=== PATIENT | male | born 1975 | race Two or more races ===

== ENCOUNTER 2020-11-23 08:06 | Day surgery (SDC) | payer MEDICAID ==
[2020-11-17 12:47] LABS: BASOPHILS # (AUTO) 0.1 X10'3 (0-0.2); BASOPHILS % (AUTO) 0.7 % (0-1); EOSINOPHILS # (AUTO) 0.2 X10'3 (0-0.9); EOSINOPHILS % (AUTO) 2.1 % (0-6); LYMPHOCYTES # (AUTO) 2.8 X10'3 (1.1-4.8); LYMPHOCYTES % (AUTO) 38.3 % (21-51); MEAN CORPUSCULAR HEMOGLOBIN 31.7 PG (27.0-31.0); MEAN CORPUSCULAR VOLUME 93.2 FL (78-98); MEAN PLATELET VOLUME 6.9 FL (7.4-10.4); MONOCYTES # (AUTO) 0.7 X10'3 (0-0.9); MONOCYTES % (AUTO) 9.3 % (2-12); NEUTROPHILS # (AUTO) 3.7 X10'3 (1.8-7.7); NEUTROPHILS % (AUTO) 49.6 % (42-75); PRE OP HEMATOCRIT 42.6 % (42.0-52.0); PRE OP HEMOGLOBIN 14.5 g/dL (14.0-17.9); PRE OP PLATELET COUNT 311 X10'3 (140-440); RED BLOOD COUNT 4.57 X10'6 (4.70-6.10)
[2020-11-17 13:02] LABS: ALBUMIN 3.8 G/DL (3.4-5.0); ALBUMIN/GLOBULIN RATIO 1.3 (1.1-1.5); ALKALINE PHOSPHATASE 69 IU/L (46-116); BLOOD UREA NITROGEN 25 MG/DL (7-18); BUN/CREATININE RATIO 20.2 (5.4-32.0); CALCIUM 8.9 MG/DL (8.5-10.1); CHLORIDE 104 MMOL/L (99-107); CREATININE 1.24 MG/DL (0.60-1.10); PRE OP ALT 25 U/L (30-65); PRE OP ANION GAP 7 (8-16); PRE OP AST 14 U/L (10-37); PRE OP BILIRUB, TOTAL 0.5 MG/DL (0.0-1.0); PRE OP GLUCOSE 98 MG/DL (70-104); PRE OP SODIUM 139 MMOL/L (135-145); TOTAL CARBON DIOXIDE 28.1 MMOL/L (24-32); TOTAL PROTEIN 6.7 G/DL (6.4-8.2); eGFR 64 ML/MIN
[2020-11-23] VITALS (11 sets, daily range): BP systolic 110–125; BP diastolic 69–90
[~2020-11-23] VITALS: Ht 182.9 cm; Wt 90.7 kg
[~2020-11-23 08:06] MED LIST: NO HOME MEDS PO; albuterol 2.5 MG/3 ML nebule NEB ONE; cefazolin/dext.iso 2gm/100ml IV ONE; famotidine 20mg tablet PO ONE; ringers solution, lacted 1,000 ML IV SCH
[2020-11-23] MEDS ORDERED: metoclopramide 10mg tablet PO ONE (08:30)
[2020-11-23] MEDS ORDERED: glycopyrrolate 0.2mg/ml inj ONE (11:00)
[2020-11-23] MEDS ORDERED: neostigmine methylsulfate 1 MG/ML 10ml vial ONE (11:00)
[2020-11-23] MEDS ORDERED: sevoflurane 250ml liquid IH ONE (11:00)
[2020-11-23] MEDS ORDERED: fentaNYL/PF 50MCG/1 ML 2ML syringe ONE (11:06)
[2020-11-23] MEDS ORDERED: midazolam 1 mg/ML 2ml injection ONE (11:08)
[2020-11-23] MEDS ORDERED: ondansetron/PF 4mg/2ml inj ONE (11:28)
[2020-11-23] MEDS ORDERED: dexamethasone sod phosphate 4mg/ml inj. ONE (11:29)
[2020-11-23] MEDS ORDERED: LIDOcaine 2% (20mg/ml) 5ml vial ONE (11:29)
[2020-11-23] MEDS ORDERED: LIDOcaine 1%/PF 5ML 10 MG/ML VIAL ONE (11:29)
[2020-11-23] MEDS ORDERED: propofol inj 20 ML IV ONE (11:29)
[2020-11-23] MEDS ORDERED: ROPIVAcaine 0.5% (5mg/ml) 30ml vial ONE (11:29)
[2020-11-23] MEDS ORDERED: morphine 4 MG/ML inj SYRINge IV PRN (12:00)
[2020-11-23] MEDS ORDERED: meperidine/PF 25mg/ml syringe IV PRN ×3 (12:00)
[2020-11-23] MEDS ORDERED: labetalol 20mg/4ml (5mg/ml) syringe IV PRN (12:00)
[2020-11-23] MEDS ORDERED: hydrALAZINE 20mg/ml inj. IV PRN (12:00)
[2020-11-23] MEDS ORDERED: ringers solution, lacted 1,000 ML IV SCH (12:00)
[2020-11-23] MEDS ORDERED: proCHLORperazine 10 MG/2 ml inj IV PRN (12:00)
[2020-11-23] MEDS ORDERED: morphine 2 MG/ML inj. syringe IV PRN (12:00)
[2020-11-23] MEDS ORDERED: ondansetron/PF 4mg/2ml inj IV PRN (12:00)
[2020-11-23] MEDS ORDERED: acetaminophen 1,000mg/100ml IV 100 ML IV PRN ×2 (12:00→13:00)
[2020-11-23] MEDS ORDERED: HYDROcodone/acetaminophen 10/325mg tab PO PRN (12:30)
[2020-11-23] MEDS ORDERED: ketorolac tromethamine 15mg/ml inj. IV ONE (13:00)
--- NOTE | 2020-11-23 14:32 | NUR ---
PT UP AND ABLE TO AMBULATE SAFELY, VOIDED, D/C INSTRUCTIONS GIVEN AND GONE OVER W/PT AND PTS WHO VERBALIZED UNDERSTANDING. PT D/CD TO HOME VIA W/C TO PRIVATE VEHICLE W/O INCIDENT. Addendum: 11/23/20 at 1500 by Honey Newsome RN Amended: Links added.
== END 2020-11-23 14:32 | disposition home or self-care (01) ==
LOC: PAS 08:06
PROVIDERS: ATTEND Orthopaedic Surgery
DX: S46.211A Strain of muscle, fascia and tendon of other parts of biceps, right arm, initial encounter (principal); M75.21 Bicipital tendinitis, right shoulder; F17.210 Nicotine dependence, cigarettes, uncomplicated; G47.33 Obstructive sleep apnea (adult) (pediatric); F12.90 Cannabis use, unspecified, uncomplicated; F32.9 Major depressive disorder, single episode, unspecified; F90.9 Attention-deficit hyperactivity disorder, unspecified type; G89.18 Other acute postprocedural pain; Z79.899 Other long term (current) drug therapy; Z20.822 Contact with and (suspected) exposure to COVID-19; Z79.01 Long term (current) use of anticoagulants; X58.XXXA Exposure to other specified factors, initial encounter; Y93.89 Activity, other specified; Y92.89 Other specified places as the place of occurrence of the external cause; Y99.8 Other external cause status
CPT/HCPCS: 24342; 36415; 64415; 76942; 80053; 82948; 85025; 93005; C1713; J0131; J1100; J1885; J2001; J2250; J2270; J2405; J2704; J2710; J3010; J7120; U0003; U0005; A4215; A4618; A6449; A7000; J2795; J3490; J8597

== ENCOUNTER 2021-07-01 15:59 | Emergency (ER) | payer MEDICAID, OTHER ==
[~2021-07-01] VITALS: Ht 182.9 cm; Wt 111.4 kg
[~2021-07-01 15:59] MED LIST changes: -albuterol 2.5 MG/3 ML nebule NEB ONE; -cefazolin/dext.iso 2gm/100ml IV ONE; -famotidine 20mg tablet PO ONE; -ringers solution, lacted 1,000 ML IV SCH
[2021-07-01] MEDS ORDERED: LIDOcaine 1% W/epiNEPHrine 1:200,000 10ml vial IJ ONE (16:30)
[2021-07-01 18:42] LABS: BASOPHILS # (AUTO) 0.1 X10'3 (0-0.2); BASOPHILS % (AUTO) 0.6 % (0-1); EOSINOPHILS # (AUTO) 0.1 X10'3 (0-0.9); EOSINOPHILS % (AUTO) 0.6 % (0-6); HEMOGLOBIN 15.2 g/dl (14.0-17.9); LYMPHOCYTES % (AUTO) 17.9 % (21-51); MEAN CORPUSCULAR HEMOGLOBIN 29.7 PG (27.0-31.0); MEAN CORPUSCULAR HGB CONC 33.7 g/dL (33.0-36.5); MEAN CORPUSCULAR VOLUME 88.2 FL (78-98); MEAN PLATELET VOLUME 7.3 FL (7.4-10.4); MONOCYTES % (AUTO) 8.6 % (2-12); NEUTROPHILS % (AUTO) 72.3 % (42-75); PLATELET COUNT 293 X10'3 (140-440); RED CELL DISTRIBUTION WIDTH 14.8 % (11.5-14.5); WHITE BLOOD COUNT 11.1 X10'3 (4.5-11.0)
[2021-07-01 18:53] LABS: ALANINE AMINOTRANSFERASE 42 U/L (12-78); ALBUMIN 3.9 G/DL (3.4-5.0); ALBUMIN/GLOBULIN RATIO 1.1 (1.1-1.5); ALKALINE PHOSPHATASE 69 IU/L (46-116); ANION GAP 10 (8-16); ASPARTATE AMINO TRANSFERASE 16 U/L (10-37); BILIRUBIN,TOTAL 0.5 MG/DL (0.1-1.0); BLOOD UREA NITROGEN 22 MG/DL (7-18); BUN/CREATININE RATIO 16.1 (5.4-32.0); CALCIUM 9.6 MG/DL (8.5-10.1); CHLORIDE 107 MMOL/L (99-107); CREATININE 1.37 MG/DL (0.60-1.10); GLUCOSE 104 MG/DL (70-104); POTASSIUM 4.2 MMOL/L (3.5-5.1); SODIUM 142 MMOL/L (135-145); TOTAL CARBON DIOXIDE 24.6 MMOL/L (24-32); TOTAL PROTEIN 7.3 G/DL (6.4-8.2); eGFR 56 ML/MIN
[2021-07-01 19:00] LABS: APTT 26 SECONDS (22-32)
--- NOTE | 2021-07-01 19:24 | NUR ---
pt given warm blanket and ice pack. no s/s of distress. pt denies sob/chest pain
[2021-07-01] MEDS ORDERED: morphine 4 MG/ML inj SYRINge IV ONE (20:35)
[2021-07-01 20:56] VITALS: BP 133/81
== END 2021-07-02 00:06 | disposition short-term general hospital (02) ==
LOC: ER 15:59
DX: S63.105A Unspecified dislocation of left thumb, initial encounter (principal); S06.5X9A Traumatic subdural hemorrhage with loss of consciousness of unspecified duration, initial encounter; Z20.822 Contact with and (suspected) exposure to COVID-19; R51.9 Headache, unspecified; H57.12 Ocular pain, left eye; Y08.89XA Assault by other specified means, initial encounter; Y93.89 Activity, other specified; Y92.89 Other specified places as the place of occurrence of the external cause; Y99.8 Other external cause status
CPT/HCPCS: 26770; 36415; 70450; 70486; 72125; 73140; 80053; 85025; 85610; 85730; 86885; 86900; 86901; 87635; 93005; 96374; 99291; C9803; J2270; 99285